=== PATIENT | female | born 1985 | race Hispanic/Latino ===

== ENCOUNTER 2019-11-06 16:33 | Emergency (ER) | payer SELFPAY ==
[~2019-11-06] VITALS: Ht 154.9 cm; Wt 101.8 kg
--- OUTSIDE RECORDS SUMMARY | 2019-11-06 16:35 | XMS REPORT ---
Author Author [facility] Address [address] Bautista [address] [place] [id number] Phone Unavailable Care Team Providers Care Network Intern Name Role Phone Unavailable Unavailable Payers Payer Name Policy Type Policy Number Effective Date Expiration Date S ource Problems This patient has no known problems. Allergies, Adverse Reactions, Alerts Allergy Name Allergy Type Status Severity Reaction(s) Onset Date Inacti ve Date Treating Clinician Comments Source No Known Allergies DA Active U 2018-04-21 00:00:00 [facility] No Known Allergies DA Active U 2015-12-01 00:00:00 [facility] Medications This patient has no known medications. Procedures This patient has no known procedures. Results Test Description Test Time Test Comments Results Result Comments Source - XR CHEST 1 V 2019-06-29 17:42:00 FAX: Fortino Albrecht [phone] [place]: St: PRE -- Name: MARK GL[facility] : 1985 Age/S: 34/F [address] [place] [address] Blvd Unit #: [id number] Loc: [place] [address] Phys: Fortino Albrecht Acct: [id number] Dis Date: Status: PRE ER PHONE #: [phone] Exam Date: 06/29/2019 1730 FAX #: [phone] Reason: cough, fever, substernal cp EXAMS: CPT CODE: [id number] XR CHEST 1 V 81100 FRONTAL CHEST, 06/29/2019 5:04 PM : HISTORY: cough, fever, substernal cp. COMPARISON: 11/30/2017 FINDINGS: Heart size and vascularity are within normal limits. The lungs are clear of focal consolidation. No effusion, pneumothorax, or acute osseous abnormality. IMPRESSION: 1. No radiographic evidence of acute cardiopulmonary process. SL: YAHAIRAH at 1742 Reported and signed by: Luis E Noe M.D. CC: Fortino HERNANDEZ Technologist: RT Darron(Jody) Trnscrd Date/Time/By: 06/29/2019 (4472) : By: [email or web address] Or ig Print D/T: S: 06/29/2019 (4739) PAGE 1 Signed Report
--- NOTE | 2019-11-06 17:24 | Emergency Department Note ---
History of Present Illnes History of Present Illness Chief Complaint: Chest Pain History of Present Illness This is a 34 year old female who presents with a 1 week history of intermittent right sided, pleuritic cp with some mild associated SOB. Denies dizziness, diaphoresis, nausea or vomiting. Pain is not exertional. She is feeling like "her heart is beating hard and fast." Pt states that she has a history of anxiety and had "a lot of panic attacks, 10 - 11 attacks in a 1 week period" @ 3 weeks ago. She begin to have these symptoms after those episodes. She denies any cough, chest tightness, URI symptoms or fever. Pt states that she had similar cp @ 1 year ago, and was seen at [facility] and ernesto gnosed with "enlarged lymph nodes in her chest," and was given 2 Rx. The pain resolved and did not recur until this past week. Historian: Patient Arrival Mode: Car Leather Dresser Required: No Onset (how long ago): week(s) (1) Location: right sided cp palpitations Quality: sharp, stabbing, and pleuritic Radiation: non-radiation Severity: moderate (7/10, at it's worst) Onset quality: sudden Duration (how long): day(s) (intermittent for the past week. She did not notice any symptoms over the weekend and they recurred ) Timing of current episode: intermittent Progression: unchanged Chronicity: new Context: recent illness, recent surgery, recent travel Relieving factors: none Exacerbating factors: other (deep breathing) Associated symptoms: chest pain, shortness of breath, other (elevated heart rate) Treatments prior to arrival: aspirin (yesterday) Risk factors: Obesity Past Medical/Family History Physician Review I have reviewed the patient's past medical and family history. Any updates have been documented here. Past Medical History Recent Fever: No Clinical Suspicion of Infectio: No New/Unexplained Change in Ment: No Past Medical History: Anxiety Past Surgical History: Cholecysctectomy, Social History Smoking Cessation: Never Smoker Counseling Performed: No Alcohol Use: None Any Illegal Drug Use: No TB Exposure/Symptoms: No Physically hurt or threatened: No Family History Family history of heart diseas: No Other Any Pre-Existing Lines (PICC,: No Is patient up to date on immun: Yes Last Flu: none Last Pneumovax: none Review of Systems Review of Systems Constitutional: no symptoms EENTM: no symptoms Cardiovascular: no symptoms Respiratory: no symptoms Gastrointestinal: no symptoms Genitourinary: no symptoms Neurological: no symptoms Psychological: no symptoms Hematological/Lymphatic: no symptoms Review of other systems All other systems reviewed and negative. Physical Exam Related Data Allergies: Coded Allergies: No Known Allergies (Unverified , 11/06/19) Triage Vital Signs Vital Signs Date Time Temp Pulse Resp B/P (MAP) Pulse Ox O2 Delivery O2 Flow Rate FiO2 11/06/19 16:39 99.4 111 18 140/97 99 Vital signs reviewed: Yes Physical Exam CONSTITUTIONAL Constitutional: well-developed, well-nourished HENT HENT: normocephalic, atraumatic, oropharynx clear/moist, nose normal HENT L/R: left TM normal, right TM normal, left ext ear normal, right ext ear normal EYES Eyes: PERRL, conjunctivae normal NECK Neck: ROM normal PULMONARY Pulmonary: effort normal, breath sounds normal CARDIOVASCULAR Cardiovascular: regular rhythm, heart sounds normal (no rub;), capillary refill normal, normal rate, other (no reproducible chest pain) GASTROINTESTINAL Abdominal: soft, nontender, bowel sounds normal GENITOURINARY Genitourinary: exam deferred SKIN Skin: warm, dry MUSCULOSKELETAL Musculoskeletal: ROM normal NEUROLOGICAL Neurological: alert, oriented x 3, no gross motor or sensory deficits PSYCHOLOGICAL Results Laboratory Lab results reviewed: Yes Laboratory comments CMP - normal D-dimer - normal Cardiac panel - negative CBC - WBC = 14.4, no anemia, nl plts. UA - neg, except for trace blood UPT - negative TSH = 1.81 Imaging Imaging results reviewed: Yes Imaging Comments CT chest - negative, other than a probable 1.4 cm renal angiolipoma. NO LAD, no infiltrates, no cardiomegaly Diagnostics Tests Diagnostic test(s) reviewed: Yes Procedures 12 Lead ECG Interpretation Date: November 06, 2019 Time: 16:44 Prior CLOTH DRIER tracings: not available for review Rhythm: sinus tachycardia Rate: tachycardia BPM: 103 QRS axis: normal ST segments normal: Yes T wave elevation: II, aVF, V2, V3, V4 Clinical Impression: abnormal ECG Critical Care Time Subsequent provider I assumed direction of critical care for this patient from another provider of my specialty. Assessment & Plan Assessment & Plan Final Impression: (1) Chest pain (2) Palpitations (3) Abnormal EKG (4) Anxiety Assessment & Plan -Reviewed results of diagnostic evaluation in the ED, which was unrevealing, other than her resting HR remained in the high 90's to low 110's. Explained my concern regarding her persistent elevated HR and abnormality on EKG which could suggest pericarditis. Discussed that I really believe that this warrants further evaluation by Cardiology, with an Echo and any other necessary cardiac testing. Since patient is not insured, I suggest admission to the hospital in order to observe her on tele and have cardiology evaluate her. Otherwise, outpatient cardiology f/u will be problematic. Explained that her symptoms may be related to anxiety, but we can't be certain, without taking a closer look at her heart. - Pt went back and forth several times, trying to decide if "her anxiety" could handle being in the hospital during this Covid Pandemic. She became tearful, and ultimately decided that she could not tolerate hospitalization, and she feared that her symptoms would only become worse, should she be hospitalized. She agreed to f/u with Cardiology as an outpatient and she was provided with contact infor for Dr. Vasquez. Pt stated that "she would just pay for it." I did explain that specialty consultation and testing can be costly. - Pt signed AMA form, though she was ultimately discharged home with the following instructions: - avoid caffeine and any stimulants - take Xanax, as directed - f/u with Cardiology, as you stated that you would - establish with a PCP for managment of your anxiety - return to ER, if symptoms worsen - Pt received copies of all diagnostics and voiced understanding of the plan. Depart Disposition: HOME, SELF-CARE Last Vital Signs Date Time Temp Pulse Resp B/P (MAP) Pulse Ox O2 Delivery O2 Flow Rate FiO2 11/06/19 16:39 99.4 111 18 140/97 99 Home Meds Active Scripts Alprazolam (XANAX) 0.5 Mg Tablet, 1 TAB PO BID for anxiety, #20 TAB 0 Refills Prov:DESTINI HUNTER MD 11/06/19 DESTINI HUNTER MD November 06, 2019 17:23
--- NOTE | 2019-11-06 18:39 | NUR ---
report to MEGHA Ndiaye
--- NOTE | 2019-11-06 18:56 | Diagnostic Imaging Report ---
EXAMINATION: CT scan of the chest without contrast. TECHNIQUE: Spiral CT images of the chest were performed from the lung apices to the level of the adrenal glands. No intravenous contrast was administered per physician's request. Coronal and sagittal reformatted images were obtained. COMPARISON: None. CLINICAL HISTORY:Right-sided pleuritic chest pain, tachycardia DISCUSSION: ABSENCE OF INTRAVENOUS CONTRAST DECREASES SENSITIVITY FOR DETECTION OF FOCAL LESIONS AND VASCULAR PATHOLOGY. LINES/TUBES: None. LUNGS AND AIRWAYS: The lungs are clear. No pulmonary nodules, masses or consolidation. The airways are normal, without endobronchial lesions. PLEURA: No pneumothorax or pleural effusions. HEART AND MEDIASTINUM: The thyroid gland is normal. Heart size is normal. No pericardial effusion. Aorta is nonaneurysmal. Main pulmonary artery is normal in caliber. LYMPH NODES: There is no mediastinal, hilar or axillary lymphadenopathy. ABDOMEN: Limited unenhanced views of the upper abdomen show no abnormality within the visualized liver, spleen, pancreas, or right kidney. A 1.4 cm fat density lesion in the left superior pole (series 2, image 112) likely represents a small angiomyolipoma. The adrenal glands are normal. BONES AND SOFT TISSUES: No aggressive lytic or suspicious focal sclerotic lesions. No bony expansile lesions. Chest wall is unremarkable. Soft tissues are unremarkable. IMPRESSION: 1. Essentially unremarkable noncontrast chest CT. 2. 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 Signed by: Dr. Frederick Prieto M.D. on 11/06/2019 6:53 PM
[2019-11-06] MEDS ORDERED: XANAX0.5 MG PO (21:07)
[2019-11-06 21:19] VITALS: BP 140/67
== END 2019-11-06 21:20 | disposition home or self-care (01) ==
LOC: FSED 16:33
DX: R07.9 Chest pain, unspecified (principal); R00.2 Palpitations; R94.31 Abnormal electrocardiogram [ECG] [EKG]; F41.9 Anxiety disorder, unspecified; E66.9 Obesity, unspecified
CPT/HCPCS: 36415; 71250; 80053; 81003; 81025; 82553; 84443; 84484; 85025; 85379; 99284

== ENCOUNTER 2020-08-29 09:27 | Emergency (ER) | payer SELFPAY ==
[~2020-08-29] VITALS: Ht 152.4 cm; Wt 95.3 kg
[~2020-08-29 09:27] MED LIST: XANAX0.5 MG PO
[2020-08-29] MEDS ORDERED: CLEOCIN HCL300 MG PO (10:37)
== END 2020-08-29 10:55 | disposition home or self-care (01) ==
LOC: FSED 09:55
DX: L53.9 Erythematous condition, unspecified (principal); T50.Z95A Adverse effect of other vaccines and biological substances, initial encounter; F41.9 Anxiety disorder, unspecified
CPT/HCPCS: 99282

== ENCOUNTER 2021-06-28 07:28 | Emergency (ER) | payer SELFPAY ==
[~2021-06-28] VITALS: Ht 152.4 cm; Wt 105.0 kg
[~2021-06-28 07:28] MED LIST changes: +CLEOCIN HCL300 MG PO
[2021-06-28] MEDS ORDERED: MOBIC15 MG PO (08:31)
== END 2021-06-28 08:40 | disposition home or self-care (01) ==
LOC: FSED 08:05
DX: M25.562 Pain in left knee (principal); M17.12 Unilateral primary osteoarthritis, left knee; I10 Essential (primary) hypertension; F41.9 Anxiety disorder, unspecified
CPT/HCPCS: 99283

== ENCOUNTER 2022-03-09 16:16 | Emergency (ER) | payer SELFPAY ==
[~2022-03-09] VITALS: Ht 154.9 cm; Wt 104.4 kg
[~2022-03-09 16:16] MED LIST changes: +MOBIC15 MG PO
[2022-03-09] MEDS ORDERED: KETOROLAC TROMETHAMINE 30 MG/ML VIAL IM STA (17:21)
[2022-03-09] MEDS ORDERED: AUGMENTIN 500-1 EACH PO (17:24)
[2022-03-09] MEDS ORDERED: KETOROLAC TROME10 MG PO (17:24)
[2022-03-09] MEDS ORDERED: CEFTRIAXONE 1 GM VIAL IM ONE (17:30)
[2022-03-09] MEDS ORDERED: CEFTRIAXONE 1 GM VIAL ONE (17:47)
[2022-03-09] MEDS ORDERED: KETOROLAC TROMETHAMINE 30 MG/ML VIAL ONE (17:47)
== END 2022-03-09 17:50 | disposition home or self-care (01) ==
LOC: FSED 16:35
DX: H70.001 Acute mastoiditis without complications, right ear (principal); H66.91 Otitis media, unspecified, right ear; F41.9 Anxiety disorder, unspecified
CPT/HCPCS: 81025; 96372; 99283; J0696; J1885

== ENCOUNTER 2024-02-11 17:18 | Emergency (ER) | payer SELFPAY ==
[~2024-02-11] VITALS: Ht 152.4 cm; Wt 102.1 kg
[~2024-02-11 17:18] MED LIST changes: +AUGMENTIN 500-1 EACH PO; +KETOROLAC TROME10 MG PO
[2024-02-11 18:11] VITALS: PULSE 99; RESP 16; TEMP 97.7
[2024-02-11] MEDS ORDERED: CEPHALEXIN500 MG PO (20:28)
[2024-02-11] MEDS ORDERED: CEPHALEXIN MONOHYDRATE 250 MG CAP PO ONE (20:30)
[2024-02-11] MEDS ORDERED: TRIAMCINOLONE A15 G1 TOP (20:33)
[2024-02-11 20:40] VITALS: BP 146/96; PULSE 98; RESP 18; TEMP 98; O2SAT 98
== END 2024-02-11 20:40 | disposition home or self-care (01) ==
LOC: FSED 18:15
DX: L03.114 Cellulitis of left upper limb (principal); L01.00 Impetigo, unspecified
CPT/HCPCS: 99282